=== PATIENT | female | born 1970 | race Caucasian/White ===

== ENCOUNTER 2020-08-14 16:17 | Emergency (ER) | payer SELFPAY ==
[2020-08-14] MEDS ORDERED: TETANUS & DIPHTHERIA TOX,ADULT 0.5 ML VIAL ONE (17:00)
[2020-08-14] MEDS ORDERED: BUPIVACAINE 0.5% PF 10 ML VIAL ONE (17:00)
[2020-08-14] MEDS ORDERED: LIDOCAINE 1% MPF 30 ML VIAL ONE (17:00)
--- NOTE | 2020-08-14 17:13 | RAD REPORT ---
EXAM DESCRIPTION: RAD - Tib Fib Left - 08/14/2020 5:04 pm CLINICAL HISTORY: laceration Pain and swelling COMPARISON: No comparisons FINDINGS: There is a prominent pre-tibial laceration noted. Tiny radiopaque debris is present in the region. No fracture or dislocation. Moderate posterior calcaneal spur.
--- NOTE | 2020-08-14 18:48 | RAD REPORT ---
EXAM DESCRIPTION: RAD - Ankle Left 2 View - 08/14/2020 6:11 pm CLINICAL HISTORY: laceration, post foreign body removal COMPARISON: Tib Fib Left dated 08/14/2020 FINDINGS: Laceration is seen along the inferior leg anterior soft tissues. No fracture is evident. A few foci of debris may be present within the wound inferiorly.
[2020-08-14] MEDS ORDERED: LIDOCAINE 1% W/EPI 1:100,000 MDV 50 ML VIAL ONE (19:00)
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
[2020-08-14] MEDS ORDERED: CEFAZOLIN/SWI 1gm 1 GM/10 ML SYR ONE (20:03)
[2020-08-14] MEDS ORDERED: DOXYCYCLINE 100 MG CAP PO ONE (20:03)
[2020-08-14 20:24] VITALS: TEMP 98.5
[2020-08-14 20:25] VITALS: O2SAT 100
[2020-08-14 20:27] VITALS: BP 134/74
== END 2020-08-14 20:19 | disposition home or self-care (01) ==
LOC: ER 16:17
PROC: 0HQLXZZ Repair Left Lower Leg Skin, External Approach (ICD-10-PCS; principal; 2020-08-14)
DX: S81.812A Laceration without foreign body, left lower leg, initial encounter (principal); V94.0XXA Hitting object or bottom of body of water due to fall from watercraft, initial encounter; Z23 Encounter for immunization
CPT/HCPCS: 90471; 90714; 96374; 99284; J0690